=== PATIENT | male | born 1955 | race Caucasian/White ===

== ENCOUNTER 2022-05-12 13:29 | Inpatient (IN) | payer MEDICARE ==
[2022-05-12] VITALS (8 sets, daily range): BP systolic 135–155; BP diastolic 78–87
[~2022-05-12] VITALS: Ht 182.9 cm; Wt 112.9 kg
[~2022-05-12 13:29] MED LIST: potassium Cl 2 mEq/ml inj IV ONE
--- NOTE | 2022-05-12 15:00 | NUR ---
Patient arrived to the floor. VSS, no complaints. Telephone call to Dr. Ramos to place orders there was no answer, voicemail left. Written orders entered. director of labor and delivery prep completed, patient awaiting pear picker.
[2022-05-12] MEDS ORDERED: ASPI-1397 PO (15:48)
[2022-05-12] MEDS ORDERED: BENA40TA90 PO (15:48)
[2022-05-12] MEDS ORDERED: IBUP1TAB11 PO (15:48)
[2022-05-12] MEDS ORDERED: SIMV-45 PO (15:48)
[2022-05-12] MEDS ORDERED: FLO0.4C PO (15:48)
[2022-05-12] MEDS ORDERED: METF-438 PO (15:48)
[2022-05-12] MEDS ORDERED: GLIP10TA11 PO (15:48)
[2022-05-12] MEDS ORDERED: LATA2.5D14 EACHEYE (15:48)
[2022-05-12] MEDS ORDERED: TEST5GEL18 TOP (15:48)
[2022-05-12] MEDS ORDERED: HYDR12.55 PO (15:48)
[2022-05-12] MEDS ORDERED: NAPR220T67 PO (15:49)
[2022-05-12] MEDS ORDERED: nitroGLYCERIN-Tridil 50MG/D5W 250 ML IV ONE (16:17)
[2022-05-12] MEDS ORDERED: heparin 1,000unit/ml 10ml vial 10 ML ONE (16:18)
[2022-05-12] MEDS ORDERED: midazolam 1 mg/ML 2ml injection ONE (16:18)
[2022-05-12] MEDS ORDERED: iohexol 350MG/ML 100ml bottle IV ONE ×2 (16:18→17:39)
[2022-05-12] MEDS ORDERED: verapamil 2.5 mg/ml inj IV ONE (16:18)
[2022-05-12] MEDS ORDERED: fentaNYL/PF 50MCG/1 ML 2ML syringe ONE (16:19)
[2022-05-12 16:27] LABS: BASOPHILS % (AUTO) 0.4 % (0-1); EOSINOPHILS # (AUTO) 0.2 X10'3 (0-0.9); EOSINOPHILS % (AUTO) 2.4 % (0-6); LYMPHOCYTES # (AUTO) 1.2 X10'3 (1.1-4.8); LYMPHOCYTES % (AUTO) 14.7 % (21-51); MEAN CORPUSCULAR HEMOGLOBIN 30.2 PG (27.0-31.0); MEAN CORPUSCULAR HGB CONC 34.2 g/dL (33.0-36.5); MEAN CORPUSCULAR VOLUME 88.3 FL (78-98); MEAN PLATELET VOLUME 9.2 FL (7.4-10.4); MONOCYTES # (AUTO) 0.9 X10'3 (0-0.9); MONOCYTES % (AUTO) 11.4 % (2-12); NEUTROPHILS # (AUTO) 5.8 X10'3 (1.8-7.7); NEUTROPHILS % (AUTO) 71.1 % (42-75); PRE OP HEMATOCRIT 36.2 % (42.0-52.0); PRE OP HEMOGLOBIN 12.4 g/dL (14.0-17.9); PRE OP PLATELET COUNT 216 X10'3 (140-440)
[2022-05-12 16:40] LABS: ALBUMIN 3.8 G/DL (3.4-5.0); ALBUMIN/GLOBULIN RATIO 1.1 (1.1-1.5); ALKALINE PHOSPHATASE 64 IU/L (46-116); BLOOD UREA NITROGEN 20 MG/DL (7-18); BUN/CREATININE RATIO 18.2 (5.4-32.0); CALCIUM 8.6 MG/DL (8.5-10.1); CHLORIDE 101 MMOL/L (99-107); CHOLESTEROL 169 MG/DL (0-200); HDL CHOLESTEROL 42 MG/DL (35-60); LDL CHOLESTEROL 90 MG/DL (50-100); PRE OP ALT 30 U/L (30-65); PRE OP ANION GAP 9 (8-16); PRE OP AST 14 U/L (10-37); PRE OP BILIRUB, TOTAL 0.2 MG/DL (0.0-1.0); PRE OP GLUCOSE 143 MG/DL (70-104); PRE OP POTASSIUM 4.1 MMOL/L (3.4-5.1); PRE OP SODIUM 136 MMOL/L (135-145); TOTAL CARBON DIOXIDE 25.9 MMOL/L (24-32); TOTAL PROTEIN 7.2 G/DL (6.4-8.2); TRIGLYCERIDES 224 MG/DL (20-135); eGFR 67 ML/MIN
--- NOTE | 2022-05-12 18:09 | NUR ---
Problems reprioritized. Patient report given, questions answered & plan of care reviewed with PAUL Horton.
--- NOTE | 2022-05-12 18:10 | NUR ---
Patient in room PCU 3016. I have received report from Mable MURRAY and had the opportunity to ask questions and assume patient care.
[2022-05-12] MEDS ORDERED: HYDROcodone/acetaminophen 5mg/325mg tablet PO PRN (19:45)
[2022-05-12] MEDS ORDERED: proCHLORperazine 10 MG/2 ml inj IV PRN (19:45)
[2022-05-12] MEDS ORDERED: OXAZEpam 15mg capsule PO PRN (19:45)
[2022-05-12] MEDS ORDERED: ondansetron/PF 4mg/2ml inj IV PRN (19:45)
[2022-05-13] VITALS (18 sets, daily range): BP systolic 91–172; BP diastolic 52–91
[2022-05-13] MEDS ORDERED: normal saline 1000ml 1,000 ML IV SCH (06:00)
--- NOTE | 2022-05-13 06:20 | NUR ---
Patient in room PCU 3016. I have received report from TERRI Horton and had the opportunity to ask questions and assume patient care.
--- NOTE | 2022-05-13 06:43 | NUR ---
Problems reprioritized. Patient report given, questions answered & plan of care reviewed with roopa rn.
[2022-05-13] MEDS ORDERED: dextrose 50%-water 50ml dispensing syringe IV PRN ×4 (07:25→17:40)
[2022-05-13] MEDS ORDERED: glucagon, human recombinant 1mg kit SUBCUT PRN (07:25)
[2022-05-13] MEDS ORDERED: MESSAGE TO PHARMACY PO ONE (07:25)
[2022-05-13] MEDS ORDERED: DEXTROSE 15 GM of carb/4 tabs (each vial/BOTTLE has 4 tablets) PO PRN ×2 (07:25)
[2022-05-13] MEDS ORDERED: mannitol 12.5gm/50mL VIAL IV ONE (08:00)
[2022-05-13] MEDS ORDERED: phenylephrine 10mg/ml inj. ONE (08:00)
[2022-05-13] MEDS ORDERED: tranexamic acid 100mg/ml inj. ONE ×2 (08:00→13:16)
[2022-05-13] MEDS ORDERED: calcium chloride 100 MG/1 ML inj IV ONE (08:00)
[2022-05-13] MEDS ORDERED: heparin 10,000 units/1 ML INJ ONE (08:00)
[2022-05-13] MEDS ORDERED: sodium bicarbonate 1 mEq/ml 50ml vial IV ONE (08:00)
[2022-05-13] MEDS ORDERED: albumin (human) 25% 100 ML IV solution IV ONE (08:00)
[2022-05-13] MEDS ORDERED: methylPREDNISolone sod. succ. 500mg inj ONE (08:00)
[2022-05-13 08:05] LABS: BASOPHILS % (AUTO) 0.4 % (0-1); EOSINOPHILS # (AUTO) 0.2 X10'3 (0-0.9); EOSINOPHILS % (AUTO) 2.3 % (0-6); HEMATOCRIT 37.8 % (42.0-52.0); HEMOGLOBIN 12.6 g/dl (14.0-17.9); LYMPHOCYTES # (AUTO) 0.8 X10'3 (1.1-4.8); LYMPHOCYTES % (AUTO) 12.2 % (21-51); MEAN CORPUSCULAR HEMOGLOBIN 29.5 PG (27.0-31.0); MEAN CORPUSCULAR HGB CONC 33.3 g/dL (33.0-36.5); MEAN CORPUSCULAR VOLUME 88.5 FL (78-98); MEAN PLATELET VOLUME 9.2 FL (7.4-10.4); MONOCYTES # (AUTO) 0.7 X10'3 (0-0.9); MONOCYTES % (AUTO) 10.4 % (2-12); NEUTROPHILS # (AUTO) 5.1 X10'3 (1.8-7.7); NEUTROPHILS % (AUTO) 74.7 % (42-75); PLATELET COUNT 211 X10'3 (140-440); RED BLOOD COUNT 4.26 X10'6 (4.70-6.10); RED CELL DISTRIBUTION WIDTH 14.1 % (11.5-14.5); WHITE BLOOD COUNT 6.8 X10'3 (4.5-11.0)
[2022-05-13 08:09] LABS: ALANINE AMINOTRANSFERASE 27 U/L (12-78); ALBUMIN 3.7 G/DL (3.4-5.0); ALBUMIN/GLOBULIN RATIO 1.2 (1.1-1.5); ALKALINE PHOSPHATASE 46 IU/L (46-116); ANION GAP 5 (8-16); ASPARTATE AMINO TRANSFERASE 18 U/L (10-37); BILIRUBIN,TOTAL 0.4 MG/DL (0.1-1.0); BLOOD UREA NITROGEN 16 MG/DL (7-18); CALCIUM 8.5 MG/DL (8.5-10.1); CHLORIDE 105 MMOL/L (99-107); CHOL/HDL RATIO 4.5 (0.00-4.99); CHOLESTEROL 180 MG/DL (0-200); CREATININE 0.94 MG/DL (0.60-1.10); GLUCOSE 190 MG/DL (70-104); HDL CHOLESTEROL 40 MG/DL (35-60); LDL CHOLESTEROL 85 MG/DL (50-100); POTASSIUM 4.4 MMOL/L (3.5-5.1); SODIUM 138 MMOL/L (135-145); TOTAL CARBON DIOXIDE 27.8 MMOL/L (24-32); TOTAL PROTEIN 6.8 G/DL (6.4-8.2); TRIGLYCERIDES 288 MG/DL (20-135); eGFR 80 ML/MIN
[2022-05-13] MEDS ORDERED: MESSAGE TO PHARMACY IJ ONE (08:20)
[2022-05-13] MEDS ORDERED: cefazolin/dext.iso 2gm/100ml 50 ML IV ONE (08:20)
[2022-05-13] MEDS ORDERED: gabapentin 400mg capsule PO ONE (08:20)
[2022-05-13] MEDS ORDERED: MESSAGE TO NURSING PO ONE ×5 (08:20→10:00)
[2022-05-13] MEDS ORDERED: insulin glargine (Lantus) pen - multi-dose SQ PRN ×2 (08:20→17:40)
[2022-05-13] MEDS ORDERED: Insulin Reg/NS 100units/100mL 100 ML IV SCH ×2 (08:20→17:40)
[2022-05-13 09:06] LABS: ABG BASE EXCESS -1.6 mmol/L (-2.0-2.0); ABG HCO3 22.5 mmol/L (22.0-26.0); ABG OXYGEN SATURATION 95.3 % (94-97); ABG PO2 (T) 70.6 mmHg (75.0-100.0); ALLEN'S TEST POSITIVE; FCOHb 0.2 % (0.0-3.9); FMetHb 0.1 % (0.0-1.5); TOTAL HEMOGLOBIN 13.1 G/dl (14.0-18.0)
[2022-05-13 09:30] LABS: APTT 26 SECONDS (22-32)
[2022-05-13] MEDS ORDERED: ringers solution, lacted 1,000 ML IV ONE (09:40)
[2022-05-13] MEDS ORDERED: aspirin 81mg, enteric-coated 1 TAB TABLET.DR PO SCH (09:56)
[2022-05-13] MEDS ORDERED: lisinopril 20mg tablet PO SCH (09:57)
[2022-05-13] MEDS ORDERED: HYDROchlorothiazide 12.5mg capsule PO SCH (09:58)
[2022-05-13 10:30] LABS: CLARITY,URINE CLEAR (Clear); COLOR,URINE YELLOW (Yellow); GLUCOSE, URINE NEGATIVE (Neg); KETONES,URINE NEGATIVE (Neg); LEUKOCYTE ESTERASE ,URINE NEGATIVE (Neg); NITRITES, URINE NEGATIVE (Neg); OCCULT BLOOD,URINE NEGATIVE (Neg); PROTEIN,URINE NEGATIVE (Neg); UROBILINOGEN,URINE 0.2 E.U/dL (0.2-1.0)
[2022-05-13 10:35] LABS: UA COLLECTION TYPE NON-SPECIFIED
[2022-05-13] MEDS: tamsulosin 0.4mg capsule PO SCH (10:45)
[2022-05-13] MEDS: insulin Lispro (HumaLOG) vial - multi-dose SQ SCH (11:21)
[2022-05-13] MEDS ORDERED: ceFAZolin 1000mg inj ONE (11:26)
[2022-05-13] MEDS ORDERED: epiNEPHrine 1 mg/ml inj ONE (11:26)
[2022-05-13] MEDS ORDERED: MIDAZolam 1 MG/ML 5ML VIAL ONE (12:19)
[2022-05-13] MEDS ORDERED: SUFENTANIL CITRATE 50 MCG/ML 2ml ampule IV ONE (12:19)
[2022-05-13] MEDS ORDERED: rocuronium 10mg/ml inj IV ONE ×4 (12:23→16:45)
[2022-05-13] MEDS ORDERED: famotidine 20mg tablet PO ONE (12:35)
[2022-05-13] MEDS ORDERED: LORazepam 2 mg/ml vial IV ONE (12:35)
--- NOTE | 2022-05-13 12:40 | NUR ---
Report given to CONCESSIONS MANAGERYasmine
[2022-05-13] MEDS ORDERED: metoprolol tartrate 12.5mg (1/2 tablet) PO ONE (13:05)
[2022-05-13] MEDS ORDERED: protamine sulf. 10mg/ml inj. IV ONE (13:16)
[2022-05-13] MEDS ORDERED: NORepinephrine 8 MG in NS 250 ML BAG (32 mcg/ml) IV ONE (13:16)
[2022-05-13] MEDS ORDERED: sevoflurane 250ml liquid IH ONE (13:16)
[2022-05-13] MEDS ORDERED: propofol inj 20 ML IV ONE (13:20)
[2022-05-13 14:02] LABS: ABG BASE EXCESS -0.3 mmol/L (-2.0-2.0); ABG HCO3 24.3 mmol/L (22.0-26.0); ABG OXYGEN SATURATION 98.9 % (94-97); ABG PCO2 39.4 mmHg (35.0-48.0); ABG PO2 151.3 mmHg (75.0-100.0); CL (ABG) 103 mmol/L (98-110); FCOHb 0.3 % (0.0-3.9); FMetHb 0.3 % (0.0-1.5); FO2Hb 98.3 % (94-97); GLUCOSE (ABG) 174 mg/dl (70-105); IONIZED CA (ABG) 1.16 mmol/L (1.10-1.43); TOTAL HEMOGLOBIN 11.8 G/dl (14.0-18.0)
[2022-05-13] MEDS ORDERED: papaverine 30 mg/ml 2ml inj. IA ONE (14:39)
[2022-05-13] MEDS ORDERED: heparin 10,000 units/1 ML INJ IR ONE (14:40)
[2022-05-13 15:04] LABS: ABG BASE EXCESS VENOUS 1.6 mmol/L (-2.0 - 2.0); ABG HCO3 VENOUS 26.5 mmol/L (21.0-28.0); ABG PCO2 VENOUS 42.8 mmHg (41.0-54.0); ABG PO2 VENOUS 40.3 mmHg (25.0-35.0); CL (ABG) 100 mmol/L (98-110); FCOHb VENOUS 0.4 %; FHHb VENOUS 23.9 %; FMetHb VENOUS 0.3 % (0.0 - 0.5); FO2Hb VENOUS 75.4 %; GLUCOSE (ABG) 132 mg/dl (70-105); TOTAL HEMOGLOBIN 9.1 G/dl (14.0-18.0)
[2022-05-13 15:08] LABS: ABG BASE EXCESS -0.4 mmol/L (-2.0-2.0); ABG HCO3 24.3 mmol/L (22.0-26.0); ABG OXYGEN SATURATION 99.3 % (94-97); ABG PCO2 39.9 mmHg (35.0-48.0); ABG PO2 298.2 mmHg (75.0-100.0); CL (ABG) 101 mmol/L (98-110); FCOHb 0.3 % (0.0-3.9); FMetHb 0.3 % (0.0-1.5); FO2Hb 98.7 % (94-97); GLUCOSE (ABG) 127 mg/dl (70-105); IONIZED CA (ABG) 1.04 mmol/L (1.10-1.43); K (ABG) 3.9 mmol/L (3.5-5.0); TOTAL HEMOGLOBIN 9.2 G/dl (14.0-18.0)
[2022-05-13 15:32] LABS: ABG BASE EXCESS 0.2 mmol/L (-2.0-2.0); ABG HCO3 25.7 mmol/L (22.0-26.0); ABG OXYGEN SATURATION 99.6 % (94-97); ABG PCO2 45.6 mmHg (35.0-48.0); ABG PO2 355.1 mmHg (75.0-100.0); CL (ABG) 102 mmol/L (98-110); FCOHb 0.3 % (0.0-3.9); FMetHb 0.3 % (0.0-1.5); GLUCOSE (ABG) 139 mg/dl (70-105); IONIZED CA (ABG) 1.06 mmol/L (1.10-1.43); K (ABG) 4.2 mmol/L (3.5-5.0); TOTAL HEMOGLOBIN 9.5 G/dl (14.0-18.0)
[2022-05-13 16:00] LABS: ABG BASE EXCESS 0.1 mmol/L (-2.0-2.0); ABG HCO3 26.3 mmol/L (22.0-26.0); ABG OXYGEN SATURATION 99.2 % (94-97); ABG PCO2 50.4 mmHg (35.0-48.0); ABG PO2 272.1 mmHg (75.0-100.0); CL (ABG) 103 mmol/L (98-110); FCOHb 0.3 % (0.0-3.9); FMetHb 0.3 % (0.0-1.5); FO2Hb 98.6 % (94-97); GLUCOSE (ABG) 149 mg/dl (70-105); IONIZED CA (ABG) 1.05 mmol/L (1.10-1.43); K (ABG) 4.1 mmol/L (3.5-5.0); TOTAL HEMOGLOBIN 9.6 G/dl (14.0-18.0)
--- NOTE | 2022-05-13 16:09 | NUR ---
DM Consult: Pt hx T2DM A1C 7.0% this admit s/p CABG w/ AVR today per EMR. Pt would benefit from DM/high protein/HH diet eds once appropriate post-op prior to discharge. Addendum: 05/13/22 at [address] Amended: Links added.
[2022-05-13 16:32] LABS: ABG BASE EXCESS 1.1 mmol/L (-2.0-2.0); ABG HCO3 27.4 mmol/L (22.0-26.0); ABG OXYGEN SATURATION 99.4 % (94-97); ABG PO2 312.3 mmHg (75.0-100.0); CL (ABG) 102 mmol/L (98-110); FCOHb 0.5 % (0.0-3.9); FMetHb 0.3 % (0.0-1.5); FO2Hb 98.6 % (94-97); GLUCOSE (ABG) 162 mg/dl (70-105); IONIZED CA (ABG) 1.05 mmol/L (1.10-1.43); K (ABG) 4.1 mmol/L (3.5-5.0); TOTAL HEMOGLOBIN 8.8 G/dl (14.0-18.0)
[2022-05-13 17:01] LABS: ABG BASE EXCESS -2.4 mmol/L (-2.0-2.0); ABG OXYGEN SATURATION 99.5 % (94-97); ABG PCO2 49.6 mmHg (35.0-48.0); ABG PO2 348.8 mmHg (75.0-100.0); CL (ABG) 103 mmol/L (98-110); FCOHb 0.6 % (0.0-3.9); FMetHb 0.3 % (0.0-1.5); FO2Hb 98.6 % (94-97); GLUCOSE (ABG) 166 mg/dl (70-105); IONIZED CA (ABG) 1.29 mmol/L (1.10-1.43); K (ABG) 4.5 mmol/L (3.5-5.0); TOTAL HEMOGLOBIN 8.6 G/dl (14.0-18.0)
[2022-05-13 17:27] LABS: ABG BASE EXCESS VENOUS -0.7 mmol/L (-2.0 - 2.0); ABG HCO3 VENOUS 25.8 mmol/L (21.0-28.0); ABG PCO2 VENOUS 52.1 mmHg (41.0-54.0); ABG PO2 VENOUS 36.6 mmHg (25.0-35.0); CL (ABG) 105 mmol/L (98-110); FCOHb VENOUS 1.1 %; FHHb VENOUS 35.5 %; FMetHb VENOUS 0.1 % (0.0 - 0.5); FO2Hb VENOUS 63.3 %; GLUCOSE (ABG) 167 mg/dl (70-105); IONIZED CA (ABG) 1.16 mmol/L (1.10-1.43); K (ABG) 4.1 mmol/L (3.5-5.0); TOTAL HEMOGLOBIN 8.5 G/dl (14.0-18.0)
[2022-05-13 17:30] LABS: ACTIVATED CLOTTING TIME 113 SEC (101-148)
[2022-05-13] MEDS ORDERED: sodium phosphate inj. 30 MMOL in dextrose 5%-water 250 ML IV PRN (17:40)
[2022-05-13] MEDS ORDERED: magnesium hydroxide 30ml (MOM) UD suspension PO PRN (17:40)
[2022-05-13] MEDS ORDERED: metoclopramide 5 mg/ml inj IV PRN (17:40)
[2022-05-13] MEDS ORDERED: potassium Cl 20 mEq SR tablet PO PRN (17:40)
[2022-05-13] MEDS ORDERED: niCARDipine-NS 40mg/200ml IVPB 200 ML IV PRN (17:40)
[2022-05-13] MEDS ORDERED: magnesium citrate 296ml oral solution PO PRN (17:40)
[2022-05-13] MEDS ORDERED: sodium phosphate inj. 15 MMOL in dextrose 5%-water 250 ML IV PRN (17:40)
[2022-05-13] MEDS ORDERED: mineral oil 133ml enema RC PRN (17:40)
[2022-05-13] MEDS ORDERED: HYDROcodone/acetaminophen 10/325mg tab PO PRN (17:40)
[2022-05-13] MEDS ORDERED: acetaminophen 325mg tablet PO PRN ×2 (17:40)
[2022-05-13] MEDS ORDERED: potassium Cl 20mEq/100mL bag 100 ML IV PRN (17:40)
[2022-05-13] MEDS ORDERED: magnesium 2GM in 50ml NS 50 ML IV PRN (17:40)
[2022-05-13] MEDS ORDERED: magnesium 4gm in 100ml NS 100 ML IV PRN (17:40)
[2022-05-13] MEDS ORDERED: NORepinephrine 8mg/ 250ml NS 250 ML IV PRN (17:40)
[2022-05-13] MEDS ORDERED: Neutra Phos packet PO PRN (17:40)
[2022-05-13] MEDS ORDERED: sodium chloride 0.45% 1,000 ML IV SCH (17:40)
[2022-05-13] MEDS ORDERED: potassium CL 10mEq/100ml bag 100 ML IV PRN (17:40)
[2022-05-13] MEDS ORDERED: bisacodyl 10mg suppository rectal RC PRN (17:40)
[2022-05-13] MEDS ORDERED: nitroGLYCERIN-Tridil 50MG/D5W 250 ML IV SCH (17:40)
[2022-05-13] MEDS ORDERED: ondansetron/PF 4mg/2ml inj IV PRN (17:40)
--- NOTE | 2022-05-13 18:00 | NUR ---
Received to room 2016, accompanied by MDs and surgical crew. Placed on ventilator, to digital color press operator, arterial line and PA line pressure monitored. Chest tubes to suction at 20 cm. Nevarez cath to gravity drainage. Dressings are dry and intact. See assessment record. All vasoactive drugs are infusing via central line.
[2022-05-13 18:12] LABS: ABG BASE EXCESS -1.7 mmol/L (-2.0-2.0); ABG HCO3 24.1 mmol/L (22.0-26.0); ABG OXYGEN SATURATION 97.1 % (94-97); ABG PCO2 (T) 44.8 mmHg (35.0-48.0); ABG PO2 (T) 108.7 mmHg (75.0-100.0); FCOHb 0.3 % (0.0-3.9); FMetHb 0.3 % (0.0-1.5); FO2Hb 96.5 % (94-97); PATIENT TEMPERATURE 36.8; PEEP 5 cm H2O; RESPIRATORY RATE 12 b/min; TIDAL VOLUME 550 mL; TOTAL HEMOGLOBIN 9.8 G/dl (14.0-18.0)
[2022-05-13 18:32] LABS: BASOPHILS % (AUTO) 0.1 % (0-1); EOSINOPHILS # (AUTO) 0.1 X10'3 (0-0.9); EOSINOPHILS % (AUTO) 0.6 % (0-6); HEMATOCRIT 27.6 % (42.0-52.0); LYMPHOCYTES # (AUTO) 0.5 X10'3 (1.1-4.8); LYMPHOCYTES % (AUTO) 3.7 % (21-51); MEAN CORPUSCULAR HEMOGLOBIN 29.2 PG (27.0-31.0); MEAN CORPUSCULAR HGB CONC 32.6 g/dL (33.0-36.5); MEAN CORPUSCULAR VOLUME 89.6 FL (78-98); MEAN PLATELET VOLUME 8.9 FL (7.4-10.4); MONOCYTES # (AUTO) 0.7 X10'3 (0-0.9); MONOCYTES % (AUTO) 5.2 % (2-12); NEUTROPHILS # (AUTO) 11.9 X10'3 (1.8-7.7); NEUTROPHILS % (AUTO) 90.4 % (42-75); PLATELET COUNT 145 X10'3 (140-440); RED BLOOD COUNT 3.08 X10'6 (4.70-6.10); RED CELL DISTRIBUTION WIDTH 14.1 % (11.5-14.5); WHITE BLOOD COUNT 13.2 X10'3 (4.5-11.0)
[2022-05-13 18:39] LABS: APTT 36 SECONDS (22-32)
[2022-05-13] MEDS: albumin (Human) 5% 250ml 250 ML IV PRN ×3 (18:41→23:38)
--- NOTE | 2022-05-13 18:41 | NUR ---
Patient report given to Sanjuanita MURRAY with all questions answered. Vital signs stable. Dr. Galeano aware of chest tube output with moderate drainage. Orders for x1 unit platelets. Monitor labs.
[2022-05-13 18:44] LABS: ALANINE AMINOTRANSFERASE 21 U/L (12-78); ALBUMIN/GLOBULIN RATIO 1.6 (1.1-1.5); ALKALINE PHOSPHATASE 26 IU/L (46-116); ANION GAP 10 (8-16); ASPARTATE AMINO TRANSFERASE 26 U/L (10-37); BILIRUBIN,TOTAL 0.3 MG/DL (0.1-1.0); BLOOD UREA NITROGEN 15 MG/DL (7-18); CALCIUM 8.7 MG/DL (8.5-10.1); CHLORIDE 108 MMOL/L (99-107); GLUCOSE 168 MG/DL (70-104); MAGNESIUM 2.2 MG/DL (1.5-2.4); PHOSPHORUS 3.2 MG/DL (2.3-4.5); POTASSIUM 4.4 MMOL/L (3.5-5.1); SODIUM 144 MMOL/L (135-145); TOTAL CARBON DIOXIDE 26.4 MMOL/L (24-32); TOTAL PROTEIN 4.9 G/DL (6.4-8.2); eGFR 75 ML/MIN
[2022-05-13] MEDS: morphine 4 MG/ML inj SYRINge IV PRN ×3 (19:10→22:27)
[2022-05-13] MEDS: vancomycin/NS 1 GM ADD-VANTAGE 250 ML IV SCH (19:51)
[2022-05-13] MEDS: mupirocin 2% ointment 22GM NS SCH (19:52)
[2022-05-13] MEDS: mupirocin 2% nasal ointment 1gm UD NS SCH (19:52)
[2022-05-13] MEDS: sennosides/docusate sodium tablet PO SCH (19:53)
--- NOTE | 2022-05-13 20:33 | NUR ---
Patient waking up, nods head to questions,follows commands, moves all extemities. Sats 98% on 40% FiO2. overbreathing the ventilator at times. Dr. Galeano updated on patient's status including current hemodynamics, chest tube output and latest labs. Order received. Will continue to monitor closely.
[2022-05-13] MEDS ORDERED: dexmedetomidin/NS 400mcg/100ml 100 ML IV PRN (20:40)
[2022-05-13] MEDS: gabapentin 300mg capsule PO SCH (20:49)
[2022-05-13] MEDS: atorvastatin 10mg tablet PO SCH (21:00)
[2022-05-13] MEDS: insulin glargine (Lantus) pen - multi-dose SQ SCH (21:00)
[2022-05-13] MEDS: latanoprost 0.005% 2.5ml ophthalmic drops EACHEYE SCH (21:00)
[2022-05-13] MEDS ORDERED: atorvastatin 20mg tablet PO SCH (21:00)
[2022-05-13] MEDS: cefazolin/dext.iso 2gm/50ml 50 ML IV SCH (23:51)
[2022-05-14] VITALS (19 sets, daily range): BP systolic 81–139; BP diastolic 53–88
[2022-05-14 00:24] LABS: BASOPHILS % (AUTO) 0.1 % (0-1); EOSINOPHILS % (AUTO) 0.1 % (0-6); HEMATOCRIT 24.1 % (42.0-52.0); HEMOGLOBIN 8.2 g/dl (14.0-17.9); LYMPHOCYTES # (AUTO) 0.2 X10'3 (1.1-4.8); MEAN CORPUSCULAR HEMOGLOBIN 30.1 PG (27.0-31.0); MEAN CORPUSCULAR HGB CONC 33.9 g/dL (33.0-36.5); MEAN CORPUSCULAR VOLUME 88.8 FL (78-98); MEAN PLATELET VOLUME 8.7 FL (7.4-10.4); MONOCYTES # (AUTO) 0.5 X10'3 (0-0.9); NEUTROPHILS # (AUTO) 8.7 X10'3 (1.8-7.7); NEUTROPHILS % (AUTO) 92.8 % (42-75); PLATELET COUNT 162 X10'3 (140-440); RED BLOOD COUNT 2.71 X10'6 (4.70-6.10); RED CELL DISTRIBUTION WIDTH 13.9 % (11.5-14.5); WHITE BLOOD COUNT 9.3 X10'3 (4.5-11.0)
[2022-05-14 00:34] LABS: ALBUMIN 3.7 G/DL (3.4-5.0); ANION GAP 9 (8-16); BLOOD UREA NITROGEN 16 MG/DL (7-18); BUN/CREATININE RATIO 13.7 (5.4-32.0); CALCIUM 8.1 MG/DL (8.5-10.1); CHLORIDE 108 MMOL/L (99-107); CREATININE 1.17 MG/DL (0.60-1.10); GLUCOSE 179 MG/DL (70-104); PHOSPHORUS 2.6 MG/DL (2.3-4.5); POTASSIUM 4.6 MMOL/L (3.5-5.1); SODIUM 141 MMOL/L (135-145); TOTAL CARBON DIOXIDE 24.1 MMOL/L (24-32); eGFR 62 ML/MIN
--- NOTE | 2022-05-14 00:45 | NUR ---
Extubated patient with RT to 4LNC without incident. Patient answers questions appropriately, able to maintain airway and manage secretions. Flutter valve and IS instruction by RT. Medicated patient with morphine for pain level of 4 to 6 per patient statement.
[2022-05-14] MEDS: morphine 2 MG/ML inj. syringe IV PRN ×2 (01:17→03:23)
[2022-05-14 03:38] LABS: ABG BASE EXCESS -2.6 mmol/L (-2.0-2.0); ABG HCO3 22.5 mmol/L (22.0-26.0); ABG OXYGEN SATURATION 97.2 % (94-97); ABG PCO2 (T) 40.4 mmHg (35.0-48.0); ABG PO2 (T) 104.2 mmHg (75.0-100.0); FCOHb 0.3 % (0.0-3.9); FMetHb 0.4 % (0.0-1.5); FO2Hb 96.5 % (94-97); PEEP 5 cm H2O; TOTAL HEMOGLOBIN 8.5 G/dl (14.0-18.0)
[2022-05-14] MEDS: HYDROcodone/acetaminophen 10/325mg tab PO PRN ×4 (05:16→17:54)
[2022-05-14] MEDS ORDERED: famotidine 20mg tablet PO ONE (06:00)
[2022-05-14] MEDS ORDERED: LORazepam 2 mg/ml vial IV ONE (06:00)
--- NOTE | 2022-05-14 06:14 | NUR ---
Problems reprioritized. Patient report given, questions answered & plan of care reviewed with Paul MURRAY.
[2022-05-14] MEDS: mupirocin 2% nasal ointment 1gm UD NS SCH (06:41)
--- NOTE | 2022-05-14 07:00 | NUR ---
Problems reprioritized. Patient report given, questions answered & plan of care reviewed with TERRI Osborn.
[2022-05-14] MEDS: cefazolin/dext.iso 2gm/50ml 50 ML IV SCH ×2 (07:56→16:11)
[2022-05-14] MEDS: metoprolol tartrate 12.5mg (1/2 tablet) PO SCH ×2 (07:57→20:56)
[2022-05-14] MEDS: gabapentin 300mg capsule PO SCH ×3 (07:57→20:59)
[2022-05-14] MEDS ORDERED: testosterone 5gm gel packet TD SCH (08:00)
[2022-05-14] MEDS: tamsulosin 0.4mg capsule PO SCH (08:44)
[2022-05-14] MEDS: mupirocin 2% ointment 22GM NS SCH ×2 (08:44→21:02)
[2022-05-14] MEDS: sennosides/docusate sodium tablet PO SCH ×2 (08:44→21:00)
[2022-05-14] MEDS: aspirin 81mg tab.chew PO SCH (08:44)
[2022-05-14] MEDS: vancomycin/NS 1 GM ADD-VANTAGE 250 ML IV SCH ×2 (08:45→20:24)
[2022-05-14] MEDS: insulin glargine (Lantus) pen - multi-dose SQ SCH ×2 (08:47→21:16)
[2022-05-14] MEDS: insulin Lispro (HumaLOG) vial - multi-dose SQ SCH ×3 (08:48→21:18)
[2022-05-14] MEDS: albumin (Human) 5% 250ml 250 ML IV PRN (11:39)
--- NOTE | 2022-05-14 13:45 | NUR ---
Received report from CASH ANALYSTPaul
[2022-05-14] MEDS: ketorolac tromethamine 15mg/ml inj. IV SCH ×2 (14:05→21:03)
--- NOTE | 2022-05-14 15:00 | NUR ---
Patient sent up to [facility] with all belongings including patient's personal orange/sanchez fan and cell phone. Report given to Lazara MURRAY; all questions answered.
[2022-05-14] MEDS ORDERED: bisacodyl 10mg suppository rectal RC PRN (17:05)
--- NOTE | 2022-05-14 18:49 | NUR ---
Patient in room U 3021. I have received report from TERRI ALANIS and had the opportunity to ask questions and assume patient care. Addendum: 05/14/22 at 1850 by Irena Crandall RN Amended: Links added.
[2022-05-14] MEDS: potassium Cl 20 mEq SR tablet PO SCH (20:00)
[2022-05-14] MEDS: magnesium Cl slow-release 64mg tablet PO SCH (20:00)
[2022-05-14] MEDS: atorvastatin 10mg tablet PO SCH (20:57)
[2022-05-14] MEDS: latanoprost 0.005% 2.5ml ophthalmic drops EACHEYE SCH (21:00)
[2022-05-15] MEDS: cefazolin/dext.iso 2gm/50ml 50 ML IV SCH ×2 (00:42→14:53)
[2022-05-15] MEDS: HYDROcodone/acetaminophen 10/325mg tab PO PRN ×5 (00:49→22:12)
[2022-05-15 02:00] VITALS: BP 107/70
[2022-05-15] MEDS: ketorolac tromethamine 15mg/ml inj. IV SCH ×2 (02:04→12:19)
--- NOTE | 2022-05-15 05:15 | NUR ---
PT WITHOUT S&S OF DISTRESS. MIN DC'D AFTER BALLOON DEFLATED, PT TOLERATED WELL AND AWARE HE NEEDS TO NOTIFY RN IF HAVING DIFFICULTY PEEING.
[2022-05-15 06:00] VITALS: BP 132/77
--- NOTE | 2022-05-15 06:20 | NUR ---
Patient in room PCU 3021. I have received report from TERRI Osborn and had the opportunity to ask questions and assume patient care.
--- NOTE | 2022-05-15 06:37 | NUR ---
Problems reprioritized. Patient report given, questions answered & plan of care reviewed with TERRI ALANIS. Addendum: 05/15/22 at 0637 by Irena Crandall RN Amended: Links added.
[2022-05-15 08:46] LABS: BASOPHILS % (AUTO) 0.1 % (0-1); EOSINOPHILS % (AUTO) 0 % (0-6); HEMATOCRIT 22.7 % (42.0-52.0); HEMOGLOBIN 7.4 g/dl (14.0-17.9); LYMPHOCYTES # (AUTO) 0.6 X10'3 (1.1-4.8); LYMPHOCYTES % (AUTO) 4.9 % (21-51); MEAN CORPUSCULAR HEMOGLOBIN 29.6 PG (27.0-31.0); MEAN CORPUSCULAR HGB CONC 32.7 g/dL (33.0-36.5); MEAN CORPUSCULAR VOLUME 90.6 FL (78-98); MEAN PLATELET VOLUME 9.7 FL (7.4-10.4); MONOCYTES # (AUTO) 1.4 X10'3 (0-0.9); MONOCYTES % (AUTO) 11.5 % (2-12); NEUTROPHILS # (AUTO) 10.4 X10'3 (1.8-7.7); NEUTROPHILS % (AUTO) 83.5 % (42-75); PLATELET COUNT 123 X10'3 (140-440); RED BLOOD COUNT 2.51 X10'6 (4.70-6.10); RED CELL DISTRIBUTION WIDTH 14.2 % (11.5-14.5); WHITE BLOOD COUNT 12.4 X10'3 (4.5-11.0)
[2022-05-15 09:01] LABS: ALBUMIN 3.6 G/DL (3.4-5.0); BLOOD UREA NITROGEN 30 MG/DL (7-18); BUN/CREATININE RATIO 22.2 (5.4-32.0); CALCIUM 7.9 MG/DL (8.5-10.1); CHLORIDE 99 MMOL/L (99-107); CREATININE 1.35 MG/DL (0.60-1.10); GLUCOSE 281 MG/DL (70-104); POTASSIUM 5.1 MMOL/L (3.5-5.1); SODIUM 132 MMOL/L (135-145); eGFR 53 ML/MIN
[2022-05-15 09:02] LABS: ANION GAP 8 (8-16); TOTAL CARBON DIOXIDE 25.5 MMOL/L (24-32)
[2022-05-15] MEDS: insulin Lispro (HumaLOG) vial - multi-dose SQ SCH ×3 (09:21→20:41)
[2022-05-15 09:37] LABS: MAGNESIUM 2.5 MG/DL (1.5-2.4)
--- NOTE | 2022-05-15 09:58 | NUR ---
f/u: Provided pt w/ written and verbal DM/CABG diet ed w/ RD contact info. Addendum: 05/15/22 at [address] Amended: Links added.
[2022-05-15 10:00] VITALS: BP 140/70
[2022-05-15] MEDS: potassium Cl 20 mEq SR tablet PO SCH ×2 (12:14→20:00)
[2022-05-15] MEDS: magnesium Cl slow-release 64mg tablet PO SCH ×2 (12:15→20:00)
[2022-05-15] MEDS: aspirin 81mg tab.chew PO SCH (12:23)
[2022-05-15] MEDS: pantoprazole 40mg Tablet.DR PO SCH (12:23)
[2022-05-15] MEDS: metoprolol tartrate 12.5mg (1/2 tablet) PO SCH ×2 (12:23→20:45)
[2022-05-15] MEDS: tamsulosin 0.4mg capsule PO SCH (12:23)
[2022-05-15] MEDS: gabapentin 300mg capsule PO SCH ×2 (12:23→13:00)
[2022-05-15] MEDS: magnesium hydroxide 30ml (MOM) UD suspension PO PRN (12:24)
[2022-05-15] MEDS: mupirocin 2% ointment 22GM NS SCH (12:24)
[2022-05-15] MEDS: sennosides/docusate sodium tablet PO SCH ×2 (12:24→20:44)
[2022-05-15] MEDS: furosemide 40mg/4ml inj IV SCH (12:24)
[2022-05-15] MEDS: LIDOcaine 5% patch TP SCH (12:24)
[2022-05-15 14:00] VITALS: BP 119/78
[2022-05-15] MEDS ORDERED: cefazolin/dext.iso 2gm/100ml 50 ML IV SCH (16:00)
[2022-05-15 18:00] VITALS: BP 102/68
--- NOTE | 2022-05-15 18:35 | NUR ---
Patient in room U 3021. I have received report from TERRI ALANIS and had the opportunity to ask questions and assume patient care. Addendum: 05/15/22 at 1916 by Irena Crandall RN Amended: Links added.
--- NOTE | 2022-05-15 18:50 | NUR ---
Problems reprioritized. Patient report given, questions answered & plan of care reviewed with TERRI Osborn.
[2022-05-15] MEDS: latanoprost 0.005% 2.5ml ophthalmic drops EACHEYE SCH (20:44)
[2022-05-15] MEDS: atorvastatin 10mg tablet PO SCH (20:44)
[2022-05-15 22:00] VITALS: BP 101/69
[2022-05-15] MEDS: insulin glargine (Lantus) pen - multi-dose SQ SCH (22:10)
--- NOTE | 2022-05-15 22:15 | NUR ---
C/O PAIN 06/05 MEDICATED WITH NORCO FOR THIS.
[2022-05-16 02:00] VITALS: BP 109/71
[2022-05-16] MEDS: HYDROcodone/acetaminophen 10/325mg tab PO PRN ×4 (05:22→21:37)
--- NOTE | 2022-05-16 05:22 | NUR ---
MEDICATED FOR PAIN WITH 2 NORCO'S 06/05. PT USING IS AND FLUTTER VALVE INSTRUCTED.
[2022-05-16 06:00] VITALS: BP 111/68
--- NOTE | 2022-05-16 06:15 | NUR ---
Patient in room PCU 3021. I have received report from Irena MURRAY and had the opportunity to ask questions and assume patient care.
--- NOTE | 2022-05-16 06:34 | NUR ---
Problems reprioritized. Patient report given, questions answered & plan of care reviewed with TERRI SAEUR. Addendum: 05/16/22 at 0635 by Irena Crandall RN Amended: Links added.
[2022-05-16 06:44] LABS: ACT @ 1.70 U 339 SEC (193-297); ACT @ 2.84 U 531 SEC (260-420); BASELINE ACT 148 SEC (101-148)
[2022-05-16 06:45] LABS: BASOPHILS % (AUTO) 0.2 % (0-1); EOSINOPHILS # (AUTO) 0.2 X10'3 (0-0.9); EOSINOPHILS % (AUTO) 1.6 % (0-6); HEMATOCRIT 22.3 % (42.0-52.0); HEMOGLOBIN 7.5 g/dl (14.0-17.9); LYMPHOCYTES % (AUTO) 8.4 % (21-51); MEAN CORPUSCULAR HGB CONC 33.6 g/dL (33.0-36.5); MEAN CORPUSCULAR VOLUME 89.1 FL (78-98); MEAN PLATELET VOLUME 9.8 FL (7.4-10.4); MONOCYTES # (AUTO) 1.6 X10'3 (0-0.9); MONOCYTES % (AUTO) 12.7 % (2-12); NEUTROPHILS # (AUTO) 9.4 X10'3 (1.8-7.7); NEUTROPHILS % (AUTO) 77.1 % (42-75); PLATELET COUNT 142 X10'3 (140-440); RED CELL DISTRIBUTION WIDTH 14.2 % (11.5-14.5); WHITE BLOOD COUNT 12.2 X10'3 (4.5-11.0)
[2022-05-16 06:46] LABS: ALBUMIN 3.3 G/DL (3.4-5.0); ANION GAP 6 (8-16); BLOOD UREA NITROGEN 41 MG/DL (7-18); BUN/CREATININE RATIO 29.9 (5.4-32.0); CALCIUM 8.1 MG/DL (8.5-10.1); CHLORIDE 97 MMOL/L (99-107); CREATININE 1.37 MG/DL (0.60-1.10); GLUCOSE 205 MG/DL (70-104); POTASSIUM 4.7 MMOL/L (3.5-5.1); SODIUM 131 MMOL/L (135-145); TOTAL CARBON DIOXIDE 28.1 MMOL/L (24-32); eGFR 52 ML/MIN
[2022-05-16] MEDS: potassium Cl 20 mEq SR tablet PO SCH ×3 (08:00→19:55)
[2022-05-16] MEDS: aspirin 81mg tab.chew PO SCH (09:08)
[2022-05-16] MEDS: metoprolol tartrate 12.5mg (1/2 tablet) PO SCH ×2 (09:09→20:03)
[2022-05-16] MEDS: sennosides/docusate sodium tablet PO SCH ×2 (09:09→20:04)
[2022-05-16] MEDS: tamsulosin 0.4mg capsule PO SCH (09:09)
[2022-05-16] MEDS: furosemide 40mg/4ml inj IV SCH (09:09)
[2022-05-16] MEDS: magnesium Cl slow-release 64mg tablet PO SCH ×2 (09:09→20:04)
[2022-05-16] MEDS: LIDOcaine 5% patch TP SCH (09:09)
[2022-05-16] MEDS: pantoprazole 40mg Tablet.DR PO SCH (09:09)
[2022-05-16] MEDS: insulin Lispro (HumaLOG) vial - multi-dose SQ SCH ×2 (09:14→14:32)
[2022-05-16] MEDS ORDERED: magnesium citrate 296ml oral solution PO ONE (09:35)
--- NOTE | 2022-05-16 10:00 | NUR ---
unable to dose nutritional insulin, patient tray picked up, meal not documented.
[2022-05-16 11:00] VITALS: BP 116/67
[2022-05-16 15:00] VITALS: BP 111/72
[2022-05-16 18:00] VITALS: BP 106/76
--- NOTE | 2022-05-16 18:08 | NUR ---
Problems reprioritized. Patient report given, questions answered & plan of care reviewed with Katy MURRAY.
[2022-05-16] MEDS: atorvastatin 10mg tablet PO SCH (20:03)
[2022-05-16] MEDS: latanoprost 0.005% 2.5ml ophthalmic drops EACHEYE SCH (20:04)
[2022-05-16] MEDS: insulin glargine (Lantus) pen - multi-dose SQ SCH (21:35)
[2022-05-17 02:00] VITALS: BP 125/76
[2022-05-17] MEDS: HYDROcodone/acetaminophen 10/325mg tab PO PRN ×3 (04:24→17:29)
[2022-05-17 06:00] VITALS: BP 133/77
--- NOTE | 2022-05-17 06:00 | NUR ---
Patient in room PCU 3021. I have received report from Katy MURRAY and had the opportunity to ask questions and assume patient care.
[2022-05-17 07:00] LABS: BASOPHILS % (AUTO) 0.3 % (0-1); EOSINOPHILS # (AUTO) 0.3 X10'3 (0-0.9); EOSINOPHILS % (AUTO) 2.8 % (0-6); HEMATOCRIT 23.9 % (42.0-52.0); HEMOGLOBIN 8.1 g/dl (14.0-17.9); LYMPHOCYTES # (AUTO) 0.8 X10'3 (1.1-4.8); LYMPHOCYTES % (AUTO) 8.7 % (21-51); MEAN CORPUSCULAR HEMOGLOBIN 30.4 PG (27.0-31.0); MEAN CORPUSCULAR HGB CONC 33.9 g/dL (33.0-36.5); MEAN CORPUSCULAR VOLUME 89.9 FL (78-98); MEAN PLATELET VOLUME 9.2 FL (7.4-10.4); MONOCYTES # (AUTO) 1.2 X10'3 (0-0.9); MONOCYTES % (AUTO) 13.6 % (2-12); NEUTROPHILS # (AUTO) 6.8 X10'3 (1.8-7.7); NEUTROPHILS % (AUTO) 74.6 % (42-75); PLATELET COUNT 166 X10'3 (140-440); RED BLOOD COUNT 2.66 X10'6 (4.70-6.10); RED CELL DISTRIBUTION WIDTH 13.8 % (11.5-14.5); WHITE BLOOD COUNT 9.1 X10'3 (4.5-11.0)
[2022-05-17 07:09] LABS: ANION GAP 5 (8-16); BLOOD UREA NITROGEN 28 MG/DL (7-18); BUN/CREATININE RATIO 23.7 (5.4-32.0); CALCIUM 8.1 MG/DL (8.5-10.1); CHLORIDE 99 MMOL/L (99-107); CREATININE 1.18 MG/DL (0.60-1.10); GLUCOSE 215 MG/DL (70-104); POTASSIUM 4.7 MMOL/L (3.5-5.1); SODIUM 134 MMOL/L (135-145); TOTAL CARBON DIOXIDE 29.9 MMOL/L (24-32); eGFR 62 ML/MIN
[2022-05-17] MEDS: LIDOcaine 5% patch TP SCH (08:00)
[2022-05-17] MEDS: magnesium Cl slow-release 64mg tablet PO SCH ×2 (08:00→20:00)
[2022-05-17] MEDS: potassium Cl 20 mEq SR tablet PO SCH ×2 (08:00→19:59)
[2022-05-17 08:34] LABS: MAGNESIUM 2.6 MG/DL (1.5-2.4)
[2022-05-17] MEDS ORDERED: furosemide 20MG tablet PO ONE (08:55)
[2022-05-17] MEDS ORDERED: albuterol 2.5 MG/3 ML nebule NEB ONE (09:00)
[2022-05-17] MEDS ORDERED: albuterol 2.5 MG/3 ML nebule NEB PRN (09:00)
[2022-05-17] MEDS: aspirin 81mg tab.chew PO SCH (10:07)
[2022-05-17] MEDS: tamsulosin 0.4mg capsule PO SCH (10:08)
[2022-05-17] MEDS: sennosides/docusate sodium tablet PO SCH ×2 (10:08→19:58)
[2022-05-17] MEDS: metoprolol tartrate 12.5mg (1/2 tablet) PO SCH ×2 (10:08→19:57)
[2022-05-17] MEDS: pantoprazole 40mg Tablet.DR PO SCH (10:09)
[2022-05-17] MEDS: insulin Lispro (HumaLOG) vial - multi-dose SQ SCH ×2 (10:18→19:57)
[2022-05-17] MEDS ORDERED: NICOTINE POLACRILEX 4 MG LOZENGE BC PRN (10:30)
[2022-05-17 11:00] VITALS: BP 141/77
--- NOTE | 2022-05-17 11:29 | NUR ---
Initial: Pt s/p CABG this admit per EMR. Currently on Regular/NCS diet w/ mostly 75-100% intake of meals likely meeting close to minimum est nutrient needs. Will recommend [employer] BID to assist w/ wound healing. [facility] 05/12 receiving routine and PRN bowel care. Will continue to monitor. Recs; 1. Continue NCS diet as tolerated 2. [employer] BIDBD; pending MD verification 3. Routine bowel care 4. Weekly wts Addendum: 05/17/22 at [address] Amended: Links added.
[2022-05-17] MEDS ORDERED: NICOTINE POLACRILEX 2 MG LOZENGE BC PRN ×2 (12:01→12:02)
[2022-05-17 15:00] VITALS: BP 110/69
[2022-05-17] MEDS: magnesium hydroxide 30ml (MOM) UD suspension PO PRN (17:28)
[2022-05-17] MEDS: JUVEN Smoothie Arginine/Glut./Ca2+Bmb (Juven 19.3pkt) 240ml cup PO SCH (17:30)
[2022-05-17 18:00] VITALS: BP 123/69
--- NOTE | 2022-05-17 18:59 | NUR ---
Problems reprioritized. Patient report given, questions answered & plan of care reviewed with Katy MURRAY, patient stable at transfer of care.
[2022-05-17] MEDS: latanoprost 0.005% 2.5ml ophthalmic drops EACHEYE SCH (19:58)
[2022-05-17] MEDS: atorvastatin 10mg tablet PO SCH (19:58)
[2022-05-17] MEDS: insulin glargine (Lantus) pen - multi-dose SQ SCH (21:31)
[2022-05-17 22:00] VITALS: BP 101/61
[2022-05-18 02:00] VITALS: BP 128/73
[2022-05-18 06:00] VITALS: BP 115/68
--- NOTE | 2022-05-18 06:13 | NUR ---
Patient in room PCU 3021. I have received report from Katy MURRAY and had the opportunity to ask questions and assume patient care.
[2022-05-18] MEDS: JUVEN Smoothie Arginine/Glut./Ca2+Bmb (Juven 19.3pkt) 240ml cup PO SCH (07:30)
[2022-05-18 07:43] LABS: ALBUMIN 3.2 G/DL (3.4-5.0); ANION GAP 11 (8-16); BLOOD UREA NITROGEN 26 MG/DL (7-18); BUN/CREATININE RATIO 25.2 (5.4-32.0); CALCIUM 8.6 MG/DL (8.5-10.1); CHLORIDE 99 MMOL/L (99-107); CREATININE 1.03 MG/DL (0.60-1.10); GLUCOSE 206 MG/DL (70-104); POTASSIUM 4.6 MMOL/L (3.5-5.1); SODIUM 139 MMOL/L (135-145); TOTAL CARBON DIOXIDE 28.7 MMOL/L (24-32); eGFR 72 ML/MIN
[2022-05-18] MEDS: magnesium Cl slow-release 64mg tablet PO SCH (08:00)
[2022-05-18] MEDS: LIDOcaine 5% patch TP SCH (08:00)
[2022-05-18] MEDS: potassium Cl 20 mEq SR tablet PO SCH (08:00)
[2022-05-18] MEDS: sennosides/docusate sodium tablet PO SCH (08:00)
[2022-05-18 08:29] VITALS: BP_SYST 115
[2022-05-18] MEDS: pantoprazole 40mg Tablet.DR PO SCH (08:29)
[2022-05-18] MEDS: metoprolol tartrate 12.5mg (1/2 tablet) PO SCH (08:29)
[2022-05-18] MEDS: aspirin 81mg tab.chew PO SCH (08:29)
[2022-05-18] MEDS: tamsulosin 0.4mg capsule PO SCH (08:29)
[2022-05-18] MEDS: HYDROcodone/acetaminophen 10/325mg tab PO PRN ×2 (08:35→15:13)
--- NOTE | 2022-05-18 08:36 | NUR ---
O2 Sat at rest on room air:_92__% If below 89%: Recovery O2 Sat at rest on ___LPM:___%:___% via (mask/nasal cannula, etc..) No further documentation is necessary. If O2 Sat did not drop below 89% on room air,ambulate patient on room air. O2 Sat while ambulating on room air:_84__% Recovery O2 Sat while ambulating on __4_LPM:__95_% No further documentation is necessary. If patient does not drop below 89% while ambulating, he/she does not qualify for home O2.
[2022-05-18] MEDS ORDERED: POTA-207 PO (09:19)
[2022-05-18] MEDS ORDERED: HYDR-3972 PO (09:19)
[2022-05-18] MEDS ORDERED: LOP12.5T PO (09:19)
[2022-05-18] MEDS ORDERED: FURO-150 PO (09:19)
[2022-05-18] MEDS ORDERED: ASPI-1265 PO (09:29)
[2022-05-18] MEDS: insulin Lispro (HumaLOG) vial - multi-dose SQ SCH (10:16)
--- NOTE | 2022-05-18 17:36 | NUR ---
Patient stable for discharge per Dr. Downing. All discharge instructions reviewed with patient and all questions answered. New prescriptions e scripted to pharmacy in [place]. PIV discontinued, cannula intact. Tele DCd. All belongings collected and sent twith patient. Wheeled to lobby via nursing staff and picked up by .
== END 2022-05-18 16:51 | disposition home or self-care (01) | DRG 216 ==
LOC: PCU 3S 14:03 → CICU 2S 05-13 13:30 → PCU 3S 05-14 14:29
PROVIDERS: ADMIT Internal Medicine Interventional Cardiology; ATTEND Internal Medicine Interventional Cardiology
PROC: 4A023N7 Measurement of Cardiac Sampling and Pressure, Left Heart, Percutaneous Approach (ICD-10-PCS; 2022-05-12)
PROC: B2111ZZ Fluoroscopy of Multiple Coronary Arteries using Low Osmolar Contrast (ICD-10-PCS; 2022-05-12)
PROC: 02RF08Z Replacement of Aortic Valve with Zooplastic Tissue, Open Approach (ICD-10-PCS; 2022-05-13)
PROC: 021209W Bypass Coronary Artery, Three Arteries from Aorta with Autologous Venous Tissue, Open Approach (ICD-10-PCS; 2022-05-13)
PROC: 06BP4ZZ Excision of Right Saphenous Vein, Percutaneous Endoscopic Approach (ICD-10-PCS; 2022-05-13)
PROC: B24BZZ4 Ultrasonography of Heart with Aorta, Transesophageal (ICD-10-PCS; 2022-05-13)
PROC: 5A1221Z Performance of Cardiac Output, Continuous (ICD-10-PCS; 2022-05-13)
PROC: 30233R1 Transfusion of Nonautologous Platelets into Peripheral Vein, Percutaneous Approach (ICD-10-PCS; 2022-05-13)
PROC: 02100Z9 Bypass Coronary Artery, One Artery from Left Internal Mammary, Open Approach (ICD-10-PCS; principal; 2022-05-13 13:16)
DX: I25.119 Atherosclerotic heart disease of native coronary artery with unspecified angina pectoris (principal); N17.0 Acute kidney failure with tubular necrosis; I35.0 Nonrheumatic aortic (valve) stenosis; Z20.822 Contact with and (suspected) exposure to COVID-19; E11.9 Type 2 diabetes mellitus without complications; D64.9 Anemia, unspecified; E78.5 Hyperlipidemia, unspecified; I10 Essential (primary) hypertension; N40.0 Benign prostatic hyperplasia without lower urinary tract symptoms; R58 Hemorrhage, not elsewhere classified
CPT/HCPCS: 36415; 36600; 71045; 71046; 76376; 80048; 80053; 80061; 81003; 82330; 82435; 82803; 82947; 82948; 83036; 83735; 84100; 84132; 84295; 85018; 85025; 85347; 85384; 85610; 85730; 86885; 86900; 86901; 86920; 87081; 88300; 93005; 93312; 93325; 93458; 93880; 93971; 94002; 94010; 94664; 94668; 94760; 97116; 97161; 97530; 99152; 99153; A4333; A4618; A5120; A6212; A6213; A6258; A6402; A6446; A6449; A7000; A7048; C1751; C1769; C1894; G0378; J0171; J0690; J1644; J1815; J1885; J1940; J2060; J2150; J2250; J2270; J2370; J2440; J2704; J2720; J2930; J3010; J3370; J3475; J3480; J3490; J7030; J7040; J7050; J7120; P9035; P9045; P9047; Q9967